=== PATIENT | female | born 1925 | race Caucasian/White ===

== ENCOUNTER 2016-05-10 15:39 | Inpatient (IN) | payer MEDICARE, BC ==
--- NOTE | ~2016-05-10 | IDS ---
Interim Discharge Summary [facility] [address] [place]. 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 SECONDARY DIAGNOSES: 1. Acute on chronic diastolic congestive heart failure. 2. Generalized weakness. 3. Dysarthria with aphasia. HISTORY PRESENT ILLNESS: Please see dictation 05/11/2016. 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 She had been stopped from anticoagulants, and on aspirin. Upon arrival to the hospital, the other time, the patient was found to have had once again extremely large cardiac silhouette. Echocardiogram was done toward consultation with Dr. Maharaj further growth of pericardial effusion with evidence of tamponade. The patient meanwhile had diuresed a bit. 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 The patient's family did not wish to undergo this procedure. Meanwhile, the patient had a deterioration of her mental status with dysarthria, aphasia. There was certainly a concern for cardioembolic CVA CT was negative, stroke workup was not felt to be indicated as the patient was not a candidate for any anticoagulation of any kind nor thrombolysis of any kind. The patient in setting of cardiac tamponade in fact would not be a good candidate for physical therapy and that there was simply no other options other than hospice. At the time of this dictation, the main question was where hospice would take place. The patient, the family, and the hospice company have conferred refer. Due to cost concerns, it was likely that they would take her home and provide care for her next few weeks before she . TYREL/ANNA Darcie Dempsey M.D. / [id number] CC: Darcie Dempsey M.D. Interim Discharge Summary [address] [address] NAME: FARIDA BATRES : [birth year] STATUS : ADM IN PAT#: [id number] AGE: 89 ADM/REG DATE : 05/11/16 MR#: [id number] REPORT SERV DATE: 05/15/16 DICTATED BY: DARCIE DEMPSEY DATE: 05/14/16 REPORT STATUS : Draft TRANSCRIBED BY: MODL DATE: 05/14/16 Nile Maharaj III, M.D., [facility], [facility] Otoniel Nguyen M.D.
--- NOTE | ~2016-05-10 | HP ---
History And Physical [id number] [place]. [address] NAME: FARIDA BATRES : [birth year] STATUS : ADM Ramana PAT#: [id number] AGE: 89 ADM/REG DATE : 05/10/16 MR#: [id number] REPORT SERV DATE: 05/11/16 DICTATED BY: MANAV MAHONEY DATE: 05/11/16 REPORT STATUS : Draft TRANSCRIBED BY: MODL DATE: 05/11/16 DATE OF ADMISSION: 05/10/2016 CHIEF COMPLAINT: Progressive weakness, anorexia, and hypersomnolence. HISTORY OF PRESENT ILLNESS: This is an 89-year-old female with a history of recent pericardiocentesis done by Dr. Nile Maharaj, history of chronic diastolic congestive heart failure, and sleep apnea, who presents to the emergency room at [facility] with the above-mentioned complaints. History is obtained from the patient, her two sons and daughter, who are at bedside, and reviewing data available on the [facility] system. According to available data, Mrs. Batres who had a pericardiocentesis done recently by Dr. Nile Maharaj with removal of more than 400 mL of hemorrhagic fluid says she became increasingly weak, slept through the night and the daytime, had failure to thrive, and had no appetite at all. In the last two days, her symptoms have actually become worse. She has increased shortness of breath and dyspnea with exertion. The family was quite concerned and decided to bring her to the emergency room here. During this time, she has had no chest pain or palpitations. In the emergency room, initial workup revealed she had acute on chronic kidney disease. She had an elevated troponin, acute on chronic diastolic congestive heart failure as well. She had a troponin of 0.10. Her BUN and creatinine were 77 and 2.12, and BNP was 463. Hospitalist Service was asked to admit her for further evaluation and treatment. At the time of my evaluation, Mrs. Batres denied any chest pain, palpitations, or orthopnea. She had no cough, hemoptysis, night sweats, or weight loss. She denied any recent falls or loss of consciousness. No history of fevers, chills. She had some nausea but without any vomiting or diarrhea. No history of recent hematemesis, hematochezia, or hematuria. No other history of recent travel or exposures. PAST MEDICAL HISTORY: Significant for history of recent pericardiocentesis with removal of more than 400 mL of hemorrhagic fluid; history of chronic diastolic congestive heart failure; GI bleeding; obstructive sleep apnea, on CPAP therapy; history of partial colectomy in 2013; history of chronic atrial fibrillation with failed ablation in 2012. She also has a history of adenocarcinoma of the rectosigmoid colon. SOCIAL HISTORY: She does not smoke, drink, or use recreational drugs, and she lives alone, although the family lives very close by. FAMILY HISTORY: Noncontributory. MEDICATIONS: At home were reviewed by me in the chart today and reordered by me. REVIEW OF SYSTEMS: As in history of present illness. All other systems were reviewed in detail and quite History And Physical [address] [address] NAME: FARIDA BTARES : [birth year] STATUS : ADM Ramana PAT#: [id number] AGE: 89 ADM/REG DATE : 05/10/16 MR#: [id number] REPORT SERV DATE: 05/11/16 DICTATED BY: MANAV MAHONEY DATE: 05/11/16 REPORT STATUS : Draft TRANSCRIBED BY: ANNA DATE: 05/11/16 unremarkable. PHYSICAL EXAMINATION: GENERAL: This is a pleasant 89-year-old, not in any acute distress. HEENT: Head is atraumatic, normocephalic. She is alert, awake, oriented to time, place, and person. Her pupils are equal, reacting to light and accommodating. External ocular muscles are intact. Membranes are moist and pink. Sclerae are nonicteric. NECK: Supple with no jugular venous distention, lymphadenopathy, or thyromegaly. LUNGS: Clear to auscultation with fair to moderate air entry bilaterally without any expiratory wheezes. Trachea appeared to be in midline. CARDIAC: Auscultation of her heart revealed irregular rate and rhythm. ABDOMEN: Soft, nontender. Bowel sounds are present. There was no organomegaly. EXTREMITIES: Showed no cyanosis, clubbing, or edema. NEUROLOGIC: Grossly intact. No focal sensory or motor deficits. Higher functions appeared intact. She was able to move all four extremities. VITAL SIGNS: Her vital signs today showed a temperature of 97.6, pulse was 118, and respirations were 16 a minute. Blood pressure upon arrival was 111/60. Oxygen saturations were 97% on 2 L of oxygen via nasal cannula. LABORATORY DATA: Reviewed on the [facility] system showed a sodium of 134, potassium 4.4, chloride 98, CO2 of 27, BUN was 77 with a creatinine of 2.12, which is up from her baseline of 1.5-1.7. Glucose was 269 today. Her alkaline phosphatase was 134. ALT and AST were within normal limits. Troponin was elevated at 0.10. Her BNP was 463.5. CBC showed a white blood cell count of 4700, hemoglobin was 10.7, hematocrit 34.1, and platelet count was 162,000. Urinalysis was grossly unremarkable today. Films of the chest x-ray were reviewed by me on the PACS today and interpreted by me. Per my interpretation, there is normal bony architecture. There is a huge heart shadow which is not new compared to previous chest x- rays available on PACS. There were no consolidations or pleural effusions seen in the lung johnson. A 12-lead EKG done in the emergency room was also reviewed and interpreted by me. There is atrial fibrillation at a rate of [address]-T changes. IMPRESSION: 1. Generalized weakness. 2. Acute on chronic kidney disease, stage 3. 3. Altered mental status. 4. Elevated troponin, possibly secondary to recent pericardiocentesis. 5. Acute on chronic diastolic congestive heart failure. 6. History of gastrointestinal bleeding. 7. Obstructive sleep apnea, on CPAP therapy. 8. Chronic atrial fibrillation. 9. History of adenocarcinoma of the rectosigmoid colon. PLAN: We will admit Mrs. Batres to the Hospitalist Service in a telemetry bed for a 24-hour observation period. We will go ahead and consult Dr. Nile Maharaj to see her in the morning, the ER physician had already spoken to him. We will give her intravenous albumin and fluids up to a liter today and follow chemistry, electrolytes, and replace as needed. We will also follow serial troponin, although it is possible this elevation may be secondary History And Physical [address] [address] NAME: FARIDA BATRES : [birth year] STATUS : ADM Ramana PAT#: [id number] AGE: 89 ADM/REG DATE : 05/10/16 MR#: [id number] REPORT SERV DATE: 05/11/16 DICTATED BY: MANAV MAHONEY DATE: 05/11/16 REPORT STATUS : Draft TRANSCRIBED BY: ANNA DATE: 05/11/16 to recent pericardiocentesis. We will continue her CPAP therapy and start her on bronchodilators and other treatments here. Continue supplemental oxygen therapy. We will also continue all her other medications and treatments at this time. Further recommendations will follow after we see the laboratory results as ordered and Dr. Nile Maharaj has had a chance to see the patient. Hospitalist Service will be following her during her stay here. /ANNA Manav Mahoney M.D. / [id number] CC: Marco Antonio Bowser M.D.
--- NOTE | ~2016-05-10 | DS ---
Discharge Summary [facility] [address] [place]. 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 DISCHARGE DIAGNOSIS: Acute on chronic diastolic congestive heart failure. HISTORY OF PRESENT ILLNESS: Please see Dr. Uriostegui's dictation on 05/10. HOSPITAL COURSE: Admitted with progressive shortness of breath and worsening cardiac silhouette after recent pericardiocentesis, which was found to show a pericardial mass. 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 She was taken off aspirin. She was diuresed modestly, which she tolerated. Her course was complicated by an episode of expressive aphasia, which persisted and was concerning for CVA, although CT was negative. No further workup was done as the patient was felt to be terminal in light of her hemopericardium. She had progressive deterioration in her interest in food, etc. We counseled the family, they looked for placement and she eventually transferred to [facility] on 05/18 under the care of hospice, [facility]. She will follow up with Dr. Nguyen preji, otherwise with the [facility]. Greater than 30 minutes were spent on the care of this patient on discharge planning on discharge day. TYREL/ANNA Darcie Dempsey M.D. / [id number] CC: Anika Chao M.D. Leonard Hays III, M.D., [facility]
[2016-05-10 15:16] LABS: WBC (NOT ORDERED) (RFLEX) 0 (0-5)
[2016-05-10 15:32] LABS: ASCORBIC ACID (UR NOT ORDER) 40 (NEG); BILIRUBIN, URINE NEGATIVE (NEG); KETONE, URINE NEGATIVE (NEG); LEUKOCYTE ESTERASE(NOT OR NEG (NEG); NITRITE (URINE) NEG (NEG)
[~2016-05-10 15:39] MED LIST: ACCUNE1 INH; ALPHAGAN P0.1 % OPH; ASA5GR PO; ASAB PO; BESIVANCE0.6 % OPH; BIST PO; CALCIUM PO; CALTRAT600 PO; CAP50 PO; CENTRUM PO; CENTRUM TAB1 TAB PO; COLCRYS0.6 MG PO; CORDARONE PO; COREG12 PO; DEMA10T PO; DEMA20 PO; DORZOLAMIDE2 % OP; DRY EYES OP; EDOX30TA2 PO; FERROUS SULF325 M1 PO; FLONASE NAS; FLORASTOR250 MG PO; GLUCAGEN IM; GLUCOSE TABS PO; GLUCOTRO10 PO; GLUCPH PO; GLUCXL5 PO; ILEVRO1.7 ML OPH; IRON325 MG PO; K-TABS10 MEQ PO; KDUR10 PO; L20 PO; LEVEMIR SC; LEVOTHYROXIN100 MCG PO; LEVOTHYROXIN50 MCG PO; LIPITOR20 PO; LIPITOR40 PO; LOP50 PO; LORTAB 5 PO; LORTAB10; LUMIGAN2.5 ML OPH; MEGACEUDL PO; MINTOX PLUS PO; MULTIPLE VIT PO; MURO1285% OPH; NATURA2 OPH; NITROSTAT0.4 MG SL; NORCO1 TA2 PO; NORCO1 TAB; NOVOLOG SC; PACERONE200 MG PO; PEP20 PO; PRAVACHOL40 MG PO; PROTONIX PO; SPIRO25 PO; TEARS NATURA OP; TEARS NATURA OPH; TRUSOPT2 % OPH; VANC125UDL PO; VITAMIN D1000 UNI1 PO; X25 PO; X5 PO; XALAT OPH; Z100 PO; Z5 PO; [UNRECOGNIZED DRUG - OTHER] PO
[2016-05-10 15:42] LABS: BASOPHILS 0.2 %; BASOPHILS ABSOLUTE 0.01 10/3/uL (0.0-0.16); EOSINOPHILS 3.4 %; EOSINOPHILS ABSOLUTE 0.16 10/3/uL (0.0-0.53); HEMOGLOBIN 10.7 g/dL (12.0-16.0); IMMATURE GRANULOCYTES 0.4 %; IMMATURE GRANULOCYTES ABSOLUTE 0.02 10/3/uL (0.0-0.11); LYMPHOCYTES 23.7 %; LYMPHOCYTES ABSOLUTE 1.12 10/3/uL (0.67-4.30); MEAN CORPUS HGB CONC 31.4 g/dL (32.0-36.0); MEAN CORPUSCULAR HEMOGLOB 30.1 pg (26.0-34.0); MEAN CORPUSCULAR VOLUME 95.8 fL (80-100); MEAN PLATELET VOLUME 10.9 fL (9.2-13.0); MONOCYTES 5.1 %; MONOCYTES ABSOLUTE 0.24 10/3/uL (0.21-1.20); NEUTROPHILS 67.2 %; NEUTROPHILS ABSOLUTE 3.17 10/3/uL (2.02-8.40); PLATELET COUNT 162 10/3/uL (150-400); RBC DISTRIBUTION WIDTH 15.3 % (12.0-16.0); RED CELL COUNT 3.56 10/6/uL (4.0-5.6); WHITE BLOOD CELLS 4.7 10/3/uL (4.5-10.5)
[2016-05-10 15:48] LABS: HEMATOCRIT 34.1 % (36.0-48.0); MANUAL DIFF NO %
[2016-05-10 15:53] LABS: INTERNATIONAL NORMAL RATI 1.1 UNITS (-); PARTIAL THROMBO TIME 32.4 SEC (22.5-37.2); PROTIME (NOT ORD) 13.7 SEC (12.0-14.5)
[2016-05-10 15:59] LABS: ALBUMIN 2.7 G/DL (3.5-5.0); CALCIUM, SERUM 8.9 MG/DL (8.5-10.4); CHLORIDE, SERUM 98 MMOL/L (96-112); CO2 (CARBON DIOXIDE) 27 MMOL/L (24-34); CREATININE 2.12 MG/DL (0.55-1.02); DIRECT BILIRUBIN 0.1 MG/DL (0.0-0.4); GFR AFRICAN AMERICAN 23 ML/MIN (>=60); GFR NON AFRICAN AMERICAN 20 ML/MIN (>=60); INDIRECT BILIRUBIN(NOT ORDER) 0.2 MG/DL (0.1-0.9); POTASSIUM, SERUM 4.4 MMOL/L (3.5-5.3); SGOT(AST) 15 U/L (5-40); SGPT(ALT) 24 U/L (5-65); TOTAL BILIRUBIN 0.3 MG/DL (0-1.2); TOTAL PROTEIN 6.5 G/DL (6.0-8.5)
[2016-05-10 16:00] LABS: ALKALINE PHOSPHATASE 134 U/L (45-117); BUN (BLOOD UREA NITROGEN) 77 MG/DL (6-23); CHEST PAIN PROFILE TAT 0 Hrs 22 Mins; GLUCOSE, SERUM 269 MG/DL (60-99); SODIUM, SERUM 134 MMOL/L (135-148)
[2016-05-10 16:03] LABS: EOSINOPHILS 3 %; EOSINOPHILS ABSOLUTE (CALC) 0.14 10/3/uL (0.0-0.53); ER DIFF TAT 0 Hrs 25 Mins; LYMPHOCYTES 14 %; LYMPHOCYTES ABSOLUTE (CALC) 0.66 10/3/uL (0.67-4.30); MONOCYTES 7 %; MONOCYTES ABSOLUTE (CALC) 0.33 10/3/uL (0.21-1.20); NEUTROPHILS ABSOLUTE (CALC) 3.57 10/3/uL (2.02-8.40); PLATELET ESTIMATE ADQ (ADEQUATE); RBC MORPHOLOGY NORM (NORMAL); SEGMENTED NEUTROPHIL (0) 76 %; TOTAL NUCLEATED CELLS 100
[2016-05-10] MEDS ORDERED: PROTONIX PO (18:26)
[2016-05-10] MEDS ORDERED: NORCO1 TA2 PO (18:26)
[2016-05-10] MEDS ORDERED: KAON-CL-1010 MEQ PO (18:27)
[2016-05-10] MEDS ORDERED: LEVOTHYROXIN100 MCG PO (18:27)
[2016-05-10] MEDS ORDERED: COREG12 PO (18:27)
[2016-05-10] MEDS ORDERED: GLUCOTROL5 PO (18:28)
[2016-05-10] MEDS ORDERED: NITROSTAT0.4 MG SL (18:29)
[2016-05-10] MEDS ORDERED: CENTRUM PO (18:30)
[2016-05-10] MEDS ORDERED: LIPITOR40 PO (18:30)
[2016-05-10] MEDS ORDERED: X25 PO (18:30)
[2016-05-10] MEDS ORDERED: CALTRAT600 PO (18:31)
[2016-05-10] MEDS ORDERED: ASAB PO (18:31)
[2016-05-10] MEDS ORDERED: DULCOLAX STOOL100 MG PO (18:31)
[2016-05-10] MEDS ORDERED: VITAMIN D2000 UNIT PO (18:32)
[2016-05-10] MEDS ORDERED: ALPHAGAN OPH (18:32)
[2016-05-10] MEDS ORDERED: AKWA TEARS15 ML OPH (18:32)
[2016-05-10] MEDS ORDERED: XALAT OPH (18:33)
[2016-05-10] MEDS ORDERED: TRUSOPT2 % OPH (18:33)
[2016-05-10] MEDS ORDERED: Z100 PO (18:34)
[2016-05-10] MEDS ORDERED: COLCRYS0.6 MG PO (18:34)
[2016-05-11 07:09] LABS: BASOPHILS 0.3 %; BASOPHILS ABSOLUTE 0.01 10/3/uL (0.0-0.16); EOSINOPHILS 4.5 %; EOSINOPHILS ABSOLUTE 0.18 10/3/uL (0.0-0.53); HEMATOCRIT 31.4 % (36.0-48.0); HEMOGLOBIN 9.8 g/dL (12.0-16.0); LYMPHOCYTES 31.1 %; LYMPHOCYTES ABSOLUTE 1.24 10/3/uL (0.67-4.30); MEAN CORPUS HGB CONC 31.2 g/dL (32.0-36.0); MEAN CORPUSCULAR HEMOGLOB 29.7 pg (26.0-34.0); MEAN CORPUSCULAR VOLUME 95.2 fL (80-100); MEAN PLATELET VOLUME 10.6 fL (9.2-13.0); MONOCYTES ABSOLUTE 0.36 10/3/uL (0.21-1.20); NEUTROPHILS 55.1 %; PLATELET COUNT 151 10/3/uL (150-400); RBC DISTRIBUTION WIDTH 15.6 % (12.0-16.0)
[2016-05-11 07:10] LABS: MANUAL DIFF NO %
[2016-05-11 07:33] LABS: BUN (BLOOD UREA NITROGEN) 67 MG/DL (6-23); CHLORIDE, SERUM 106 MMOL/L (96-112); CO2 (CARBON DIOXIDE) 26 MMOL/L (24-34); CREATININE 1.63 MG/DL (0.55-1.02); GFR AFRICAN AMERICAN 32 ML/MIN (>=60); GFR NON AFRICAN AMERICAN 28 ML/MIN (>=60); GLUCOSE, SERUM 119 MG/DL (60-99); PHOSPHORUS, SERUM 3.5 MG/DL (2.5-4.5); POTASSIUM, SERUM 4.1 MMOL/L (3.5-5.3); SODIUM, SERUM 141 MMOL/L (135-148); ULTRASENSITIVE TSH 0.259 MCIU/ML (0.358-3.740)
[2016-05-11 07:49] LABS: TROPONIN I 0.09 NG/ML (<0.05)
[2016-05-12 04:50] LABS: BASOPHILS 0.1 %; BASOPHILS ABSOLUTE 0.01 10/3/uL (0.0-0.16); EOSINOPHILS ABSOLUTE 0.14 10/3/uL (0.0-0.53); HEMATOCRIT 33.6 % (36.0-48.0); HEMOGLOBIN 10.7 g/dL (12.0-16.0); IMMATURE GRANULOCYTES 0.1 %; IMMATURE GRANULOCYTES ABSOLUTE 0.01 10/3/uL (0.0-0.11); LYMPHOCYTES 15.1 %; LYMPHOCYTES ABSOLUTE 1.06 10/3/uL (0.67-4.30); MEAN CORPUS HGB CONC 31.8 g/dL (32.0-36.0); MEAN CORPUSCULAR HEMOGLOB 30.4 pg (26.0-34.0); MEAN CORPUSCULAR VOLUME 95.5 fL (80-100); MEAN PLATELET VOLUME 10.5 fL (9.2-13.0); MONOCYTES 7.4 %; MONOCYTES ABSOLUTE 0.52 10/3/uL (0.21-1.20); NEUTROPHILS 75.3 %; NEUTROPHILS ABSOLUTE 5.29 10/3/uL (2.02-8.40); PLATELET COUNT 192 10/3/uL (150-400); RBC DISTRIBUTION WIDTH 15.8 % (12.0-16.0); RED CELL COUNT 3.52 10/6/uL (4.0-5.6)
[2016-05-12 04:54] LABS: MANUAL DIFF NO %
[2016-05-12 04:58] LABS: INTERNATIONAL NORMAL RATI 1.2 UNITS (-); PROTIME (NOT ORD) 15.1 SEC (12.0-14.5)
[2016-05-12 05:12] LABS: % IRON SAT 6 % (20-50); CALCIUM, SERUM 9.9 MG/DL (8.5-10.4); CHLORIDE, SERUM 107 MMOL/L (96-112); CO2 (CARBON DIOXIDE) 28 MMOL/L (24-34); CREATININE 1.57 MG/DL (0.55-1.02); FERRITIN 73 NG/ML (8-252); GFR AFRICAN AMERICAN 34 ML/MIN (>=60); GFR NON AFRICAN AMERICAN 29 ML/MIN (>=60); GLUCOSE, SERUM 136 MG/DL (60-99); IRON BINDING CAPACITY 260 MCG/DL (225-410); IRON, SERUM 16 MCG/DL (35-150); POTASSIUM, SERUM 4.3 MMOL/L (3.5-5.3); SODIUM, SERUM 145 MMOL/L (135-148)
[2016-05-12 05:14] LABS: BUN (BLOOD UREA NITROGEN) 62 MG/DL (6-23); CEA 3.5 NG/ML; TROPONIN I 0.09 NG/ML (<0.05)
[2016-05-13 10:41] LABS: BASOPHILS 0.2 %; BASOPHILS ABSOLUTE 0.01 10/3/uL (0.0-0.16); EOSINOPHILS 3.5 %; EOSINOPHILS ABSOLUTE 0.23 10/3/uL (0.0-0.53); HEMATOCRIT 33.6 % (36.0-48.0); HEMOGLOBIN 10.4 g/dL (12.0-16.0); IMMATURE GRANULOCYTES 0.2 %; IMMATURE GRANULOCYTES ABSOLUTE 0.01 10/3/uL (0.0-0.11); LYMPHOCYTES 14.8 %; LYMPHOCYTES ABSOLUTE 0.97 10/3/uL (0.67-4.30); MEAN CORPUSCULAR HEMOGLOB 29.9 pg (26.0-34.0); MEAN CORPUSCULAR VOLUME 96.6 fL (80-100); MEAN PLATELET VOLUME 9.8 fL (9.2-13.0); MONOCYTES 7.3 %; MONOCYTES ABSOLUTE 0.48 10/3/uL (0.21-1.20); NEUTROPHILS ABSOLUTE 4.87 10/3/uL (2.02-8.40); PLATELET COUNT 175 10/3/uL (150-400); RED CELL COUNT 3.48 10/6/uL (4.0-5.6); WHITE BLOOD CELLS 6.6 10/3/uL (4.5-10.5)
[2016-05-13 10:44] LABS: MANUAL DIFF NO %
[2016-05-13 10:47] LABS: INTERNATIONAL NORMAL RATI 1.2 UNITS (-)
[2016-05-13 10:48] LABS: PARTIAL THROMBO TIME 32.5 SEC (22.5-37.2)
[2016-05-13 10:54] LABS: BUN (BLOOD UREA NITROGEN) 61 MG/DL (6-23); CALCIUM, SERUM 9.5 MG/DL (8.5-10.4); CHLORIDE, SERUM 101 MMOL/L (96-112); CO2 (CARBON DIOXIDE) 32 MMOL/L (24-34); CREATININE 1.57 MG/DL (0.55-1.02); GFR AFRICAN AMERICAN 34 ML/MIN (>=60); GFR NON AFRICAN AMERICAN 29 ML/MIN (>=60); GLUCOSE, SERUM 163 MG/DL (60-99); POTASSIUM, SERUM 4.9 MMOL/L (3.5-5.3); SODIUM, SERUM 142 MMOL/L (135-148)
== END 2016-05-19 13:54 | DRG 314 ==
LOC: ER 15:39 → CDU1 20:51 → CDU2 22:31 → 7NO 05-12 19:18
PROVIDERS: Emergency Medicine; Internal Medicine
DX: I31.2 Hemopericardium, not elsewhere classified (principal); I50.33 Acute on chronic diastolic (congestive) heart failure; I31.4 Cardiac tamponade; N17.9 Acute kidney failure, unspecified; C79.89 Secondary malignant neoplasm of other specified sites; R64 Cachexia; I48.2 Chronic atrial fibrillation; I13.0 Hypertensive heart and chronic kidney disease with heart failure and stage 1 through stage 4 chronic kidney disease, or unspecified chronic kidney disease; R47.01 Aphasia; N18.3 Chronic kidney disease, stage 3 (moderate); G47.33 Obstructive sleep apnea (adult) (pediatric); Z85.038 Personal history of other malignant neoplasm of large intestine; R47.1 Dysarthria and anarthria
CPT/HCPCS: 70450; 71010; 80048; 80076; 81001; 82378; 82728; 82962; 83036; 83540; 83550; 83735; 83880; 84100; 84443; 84484; 85025; 85610; 85730; 87040; 93005; 93306; 99285; A9270-GY; J1940; P9047